=== PATIENT | female | born 1990 | race Caucasian/White ===

== ENCOUNTER 2016-08-14 13:22 | Emergency (ER) | payer SELFPAY ==
[~2016-08-14] VITALS: Ht 152.4 cm; Wt 51.0 kg
[~2016-08-14 13:22] MED LIST: NO MEDS TAKEN; OXCA300T3 PO; ZONI100C13 PO
[2016-08-14 13:25] VITALS: Ht 152.4 cm; Wt 51.0 kg
--- NOTE | 2016-08-14 13:58 | ERD ---
ER Documentation Chief Complaint Date/Time DATE: 08/14/16 TIME: 13:56 Chief Complaint left breast pain x 2 mos HPI 25-year-old female no past medical history who presents with approximately 2 months of intermittent bilateral left breast nodules. Patient describes intermittent nodules palpated, equal bilaterally. She noted the nodule last night and presented to the emergency room because of concern. No family history of breast cancer. She states that these changes seem to correspond to menstrual cycle. No drainage or discharge fevers or chills. ROS All systems reviewed and are negative except as per history of present illness. Medications Home Meds Reported Medications Oxcarbazepine* (Trileptal*) 300 Mg Tablet, 300 MG PO BID 12/21/14 Zonisamide* (Zonegran*) 100 Mg Capsule, 100 MG PO BID 12/21/14 [None] No Conflict Check 05/04/11 [No Meds Taken] No Conflict Check 03/28/11 Allergies Allergies: Coded Allergies: No Known Allergy (Verified , 05/04/11) PMhx/Soc History of Surgery: No Anesthesia Reaction: No Hx Neurological Disorder: Yes (Seizures) Hx Respiratory Disorders: No Hx Cardiac Disorders: No Hx Psychiatric Problems: No Hx Miscellaneous Medical Probl: No Hx Alcohol Use: No Hx Substance Use: No Hx Tobacco Use: No FmHx Family History: No diabetes Physical Exam Vitals Vital Signs Date Time Temp Pulse Resp B/P Pulse Ox O2 Delivery O2 Flow Rate FiO2 08/14/16 13:25 98.1 92 18 117/66 99 Physical Exam General: Well developed, well nourished, no acute distress Head: Normocephalic, atraumatic. Eyes: EOM intact ENT: Moist mucous membranes Neck: Full ROM Respiratory: No respiratory distress Cardiovascular: Good capillary refil Abdominal: Nondistended : Deferred MSK: No edema, no unilateral swelling, 5/5 strength Neurologic: Alert and oriented, moving all extremities, normal speech, steady gait Skin: Chaperoned breast exam. Palpation of normal breast tissue with intermittent fibrocystic changes noted that are again equal bilaterally. No drainage discharge, no skin changes, no bilateral lymphadenopathy to axilla. Psych: Normal mood Procedures/MDM The patient is a clinical finding and history very consistent with fibrocystic changes of the breast. These are benign and likely normal in this patient. No family history of breast cancer. However I strongly recommended outpatient follow-up with [facility]PECT[facility]. I educated the patient on breast self-exam. I advised the patient that outpatient mammography may be required if the patient has worsening symptoms however at this time she is safe for outpatient management. Local resources to [facility] P[facility] INSPECT[facility] clinics have been provided. An fire support man was used during the patient's encounter. Departure Diagnosis: Primary Impression: Fibrocystic breast changes of both breasts Condition: Stable Patient Instructions: Fibrocystic Breast Disease, Presumed Referrals: [facility] Usted se palmer hecho un examen mdico de control que le indica que no est en anup condicin que requiera tratamiento urgente en el Departamento de Emergencia. Un estudio ms profundo y el tratamiento de loaiza condicin pueden esperar sin ningn riesgo hasta que usted sea atendida/o en el consultorio de loaiza mdico o anup cl marvin. Es responsabilidad suya arreglar anup saima para el seguimiento del narciso. MANEJO DE CONDICIONES NO URGENTES EN EL FUTURO 1) Si usted tiene un mdico de atencin primaria: Usted debera llamar a loaiza mdico de atencin primaria antes de venir al departamento de emergencia. Despus de las horas de consultorio, loaiza doctor o loaiza asociado/a est disponible por telfono. El mdico o enfermero de jose cruz en el servicio telefnico puede asesorarle por jaqueline medio para atender el problema, o narciso contrario se puede programar anup saima. 2) Si usted no tiene un mdico de atencin primaria: Llame al mdico o clnica de referencia que aparece abajo marjorie las horas de consultorio para hacer anup saima para que le vean. CLINICAS: [facility] 874 [phone] [address] [facility] 027 [phone] [address] [facility] 808 [phone] [address] [facility] [phone] [address] [facility]. [place] [id number] [phone] [facility]. [phone] [address] [facility]. [facility] () Usbeny se palmer hecho un examen mdico de control que le indica que no est en anup condicin que requiera tratamiento urgente en el Departamento de Emergencia. Un estudio ms profundo y el tratamiento de loaiza condicin pueden esperar sin ningn riesgo hasta que usted sea atendida/o en el consultorio de loaiza mdico o anup cl marvin. Es responsabilidad suya arreglar anup saima para el seguimiento del narciso. MANEJO DE CONDICIONES NO URGENTES EN EL FUTURO 1) Si usted tiene un mdico de atencin primaria: Usted debera llamar a loaiza mdico de atencin primaria antes de venir al departamento de emergencia. Despus de las horas de consultorio, loaiza doctor o loaiza asociado/a est disponible por telfono. El mdico o enfermero de jose cruz en el servicio telefnico puede asesorarle por jaqueline medio para atender el problema, o narciso contrario se puede programar anup saima. 2) Si usted no tiene un mdico de atencin primaria: Llame al mdico o condado institucions de referencia que aparece abajo marjorie las horas de consultorio para hacer anup saima para que le vean. SI USTED NO PUEDE PAGAR PARA ELISA UN MEDICO puede ir a: [facility] [address] [place] [address] [facility] [address] [place] [address] [facility] [address] [place] [address] [facility] [address] [place] [address] [facility] PIPE INS[place] [address] [facility] [address] [place] [address] OFFICE FAX , MADDIE [address] [place] [address] DR. BECERRA, HARDY [address] [place] [address] DR HILL, [facility] [address], [facility] [address] [address] [facility] [facility] [address] [place] [address] [facility] [address] [place] [address] [address] [facility] [id number] [address] RIDDLE, HOSEA [address] [facility] [address] [address] HEREDIA, JESUS [address] [facility]. [address], [place] [address] DR BARAJAS, FARID [address] [place], [place] [id number] Additional Instructions: Llame al doctor nombrado abajo (Referral Sources) MAANA y peewee anup SAIMA PARA DENTRO DE ANUP SEMANA. Dgale a la secretaria que nosotros le instruimos hacer esta saima.Avise o llame si loaiza condicin se empeora antes de la saima. AMADO STEWART MD Aug 14, 2016 13:58
== END 2016-08-14 14:29 | disposition home or self-care (01) ==
LOC: FTE 13:22
DX: N60.01 Solitary cyst of right breast (principal); N60.02 Solitary cyst of left breast
CPT/HCPCS: 99282

== ENCOUNTER 2017-02-28 11:32 | Emergency (ER) | payer MEDICAID ==
[~2017-02-28] VITALS: Ht 162.6 cm; Wt 53.0 kg
[~2017-02-28 11:32] MED LIST changes: -ZONI100C13 PO; +ZONI100C66 PO
[2017-02-28 11:41] VITALS: Ht 162.6 cm; Wt 53.0 kg
[2017-02-28 13:16] LABS: URINE BLOOD (Dip) POC Negative (NEGATIVE)
--- NOTE | 2017-02-28 13:31 | ERD ---
ER Documentation Chief Complaint Date/Time DATE: 02/28/17 TIME: 13:29 Chief Complaint pt bib self abd pain x 4 days , denies vomiting HPI This is a 26-year-old female presents the emergency department today complaining of intermittent pelvic pain and cramping for the past month. States she has not taken any medication for the pain. States that she does have some dysuria. States her last menstrual period was February 14, 2017. Denies any vaginal bleeding.Denies any fevers or chills, nausea or vomiting. ROS All systems reviewed and are negative except as per history of present illness. Medications Home Meds Active Scripts Acetaminophen* (Tylophen*) 500 Mg Capsule, 1 CAP PO Q6H Y for PAIN AND OR ELEVATED TEMP, #30 CAP Prov:LEOPOLDO LOPEZ PA-C 02/28/17 Naproxen* (Naprosyn*) 500 Mg Tablet, 500 MG PO BID Y for PAIN AND/OR INFLAMMATION, #30 TAB Prov:LEOPOLDO LOPEZ PA-C 02/28/17 Reported Medications Oxcarbazepine* (Trileptal*) 300 Mg Tablet, 300 MG PO BID 12/21/14 Zonisamide* (Zonegran*) 100 Mg Capsule, 100 MG PO BID 12/21/14 [None] No Conflict Check 05/04/11 [No Meds Taken] No Conflict Check 03/28/11 Allergies Allergies: Coded Allergies: No Known Allergy (Verified , 02/28/17) PMhx/Soc History of Surgery: No Anesthesia Reaction: No Hx Neurological Disorder: Yes (Seizures) Hx Respiratory Disorders: No Hx Cardiac Disorders: No Hx Psychiatric Problems: No Hx Miscellaneous Medical Probl: No Hx Alcohol Use: No Hx Substance Use: No Hx Tobacco Use: No Smoking Status: Never smoker Physical Exam Vitals Vital Signs Date Time Temp Pulse Resp B/P Pulse Ox O2 Delivery O2 Flow Rate FiO2 02/28/17 11:41 98.9 93 16 104/61 100 Physical Exam Const: NAD Head: Atraumatic Eyes: Normal Conjunctiva ENT: Normal External Ears, Nose and Mouth. Neck: Full range of motion..~ No meningismus. Resp: Clear to auscultation bilaterally Cardio: Regular rate and rhythm, no murmurs Abd: Soft, mild diffuse pelvic tenderness non distended. Normal bowel sounds. No tenderness at McBurney's Skin: No petechiae or rashes Neur: Awake and alert Psych: Normal Mood and Affect Results 24 hrs Laboratory Tests Test 02/28/17 13:23 Bedside Urine pH (LAB) 7.0 Bedside Urine Protein (LAB) Negative Bedside Urine Glucose (UA) Negative Bedside Urine Ketones (LAB) Negative Bedside Urine Blood Negative Bedside Urine Nitrite (LAB) Negative Bedside Urine Leukocyte Esterase (L Negative DIAGNOSTIC IMAGING REPORT Patient: BITA ABERNATHY : 1990 Age: 26 Sex: F MR #: [id number] DOS: 02/28/17 0000 Ordering MD: LEOPOLDO LOPEZ PA-C Location: [facility] Room/Bed: PROCEDURE: US Pelvis Transabdominal and Transvaginal. CLINICAL INDICATION: Pelvic pain. TECHNIQUE: Multiple sonographic images of the pelvis were obtained utilizing lang scale, Doppler and color flow imaging with transabdominal and endovaginal technique. The images were reviewed on a PACS workstation. COMPARISON: None. FINDINGS: The uterus is visualized and measures 7.6 x 3.2 x 4.0 cm. The endometrial echo complex measures 12.6 mm in thickness. No uterine masses are identified. The right ovary measures 3.4 x 2.0 x 2.6 cm . The left ovary measures 2.7 x 1.5 x 2.0 cm. A 1.7 cm heterogeneously hypoechoic, nodular lesion is identified on the right ovary. Mild vascularity is seen in the periphery of this lesion. The ovaries demonstrate normal vascularity. No adnexal masses or pelvic free fluid are noted. IMPRESSION: 1.7 cm heterogeneously hypoechoic nodular lesion on the right ovary. This could reflect an early hemorrhagic cyst versus true soft tissue nodule. Follow-up with repeat exam in 12 weeks to assess stability should be considered. Otherwise, unremarkable exam. If further characterization of the organs of the pelvis is needed MRI should be considered. RPTAT: AA .Kalyan Solano MD, MD Date Time Electronically viewed and signed by .Kalyan Solano MD, on 02/28/2017 13:43 .P/ CC: LEOPOLDO LOPEZ PA-C Procedures/MDM This is a 26 year old female presents emergency department today complaining of intermittent abdominal pain and cramping for the past month. Patient had mild pelvic illness on physical exam and did report some dysuria. I did obtain a UA and ultrasound UA is negative for infection test is negative US is a 1.7 cm heterogeneous hypoechoic nodular lesion on the right ovary. This could reflect an early hemorrhagic cyst versus soft tissue nodule. A follow-up exam in 12 weeks was recommended. Otherwise unremarkable. The ovaries demonstrate normal vascularity. There is no adnexal mass or pelvic free fluid. This may be the cause of the patient's intermittent pelvic pain. Low suspicion for tubo-ovarian abscess, ovarian torsion or ectopic . Low suspicion for acute appendicitis as patient has no fevers, vomiting and no tenderness at McBurney's. I explained the results to the patient. Patient declined pain medication here in the emergency department. She will be given a prescription for Tylenol and Naprosyn for home. Instructed to follow- up with an COFFEE HOST. She was given a list of community resources. At this time the patient is stable for discharge and outpatient management. Patient should follow up with their PCP in the next 1-2 days. They may return to the emergency department sooner for any persistent or worsening of symptoms. Patient understood and agreed with the plan. Discussed the patient with Dr. Garcia and he is in agreement with the plan. Departure Diagnosis: Primary Impression: Pelvic pain Condition: Fair LEOPOLDO LOPEZ PA-C Feb 28, 2017 13:31
--- NOTE | 2017-02-28 13:44 | RADRPT ---
PROCEDURE: US Pelvis Transabdominal and Transvaginal. CLINICAL INDICATION: Pelvic pain. TECHNIQUE: Multiple sonographic images of the pelvis were obtained utilizing lang scale, Doppler a nd color flow imaging with transabdominal and endovaginal technique. The images were reviewed on a PACS workstation. COMPARISON: None. FINDINGS: The uterus is visualized and measures 7.6 x 3.2 x 4.0 cm. The endometrial echo complex measures 12.6 mm in thickness. No uterine masses are identified. The right ovary measures 3.4 x 2.0 x 2.6 cm . The left ovary measures 2.7 x 1.5 x 2.0 cm. A 1.7 cm heterogeneously hypoechoic, nodular lesion is identified on the right ovary. Mild vascularity is se en in the periphery of this lesion. The ovaries demonstrate normal vascularity. No adnexal masses or pelvic free fluid are noted. IMPRESSION: 1.7 cm heterogeneously hypoechoic nodular lesion on the right ovary. This could reflect an early hem orrhagic cyst versus true soft tissue nodule. Follow-up with repeat exam in 12 weeks to assess stabi lity should be considered. Otherwise, unremarkable exam. If further characterization of the organs of the pelvis is needed MRI should be considered. RPTAT: AA .Kalyan Solano MD, Date Time Electronically viewed and signed by .Kalyan Solano MD, MD on 02/28/2017 13:43 .P/
[2017-02-28] MEDS ORDERED: ACET500C5 PO (14:50)
[2017-02-28] MEDS ORDERED: NAPR-260 PO (14:50)
== END 2017-02-28 15:03 | disposition home or self-care (01) ==
LOC: FTE 11:32
DX: R10.2 Pelvic and perineal pain (principal)
CPT/HCPCS: 76830; 76856; 81003; Z7502